=== PATIENT | male | born 2005 | race Caucasian/White ===

== ENCOUNTER 2024-10-06 01:03 | Emergency (ER) | payer OTHER ==
[~2024-10-06] VITALS: Ht 167.6 cm; Wt 56.7 kg
[2024-10-06] MEDS ORDERED: ALBU8.5H8 INH (01:33)
[2024-10-06 01:42] VITALS: BP 115/78; TEMP 98.1; O2SAT 100
== END 2024-10-06 01:43 | disposition home or self-care (01) ==
LOC: ER 01:20
DX: J45.909 Unspecified asthma, uncomplicated (principal); Z76.0 Encounter for issue of repeat prescription; Z87.09 Personal history of other diseases of the respiratory system; Z91.010 Allergy to peanuts; Z91.013 Allergy to seafood